=== PATIENT | male | born 1980 ===

== ENCOUNTER 2018-10-15 11:50 | Emergency (ER) | payer MEDICAID ==
[2018-10-15 11:54] VITALS: O2SAT 98
[2018-10-15 11:55] VITALS: BMI 24.5
[2018-10-15] MEDS ORDERED: Sodium Chloride 0.9% 1,000 ML IV STA (13:07)
--- NOTE | 2018-10-15 13:29 | ED PDOC ---
HPI: Abdomen Time Seen by Provider: 10/15/18 12:28 Chief Complaint (Nursing): Abdominal Pain History Per: Patient Additional Complaint(s): Pt. states on Sunday he developed diffuse bodyaches with tactile fever. States he was taking Theraflu throughout the day. On Sunday he woke up without fever and bodyaches but developed non-bloody, watery diarrhea which has been on going since. Reports he's been taking Pepto Bismol without any relief. Reports having diffuse upper abdominal pain which is intermittent and is only present after eating and when having a BM. Of note, pt. has not taken any antipyretics since Sunday. Denies N/V, cough, congestion, sore throat, rash, melena, hematochezia, BRBPR, sick contacts, recent travel. Past Medical History Reviewed: Historical Data, Nursing Documentation, Vital Signs Vital Signs: Last Vital Signs Temp 98.4 F 10/15/18 11:53 Pulse 72 10/15/18 11:53 Resp 16 10/15/18 11:53 BP 124/80 10/15/18 11:53 Pulse Ox 98 10/15/18 11:53 - Medical History PMH: No Chronic Diseases - Surgical History Surgical History: No Surg Hx - Family History Family History: States: No Known Family Hx - Home Medications Home Medications: Ambulatory Orders Medication Instructions Recorded Doxycycline Hyclate [Doxycycline] 100 mg PO BID #20 tab 01/19/15 Cyclobenzaprine HCl [Flexeril] 10 mg PO Q8 #15 tab 06/20/15 Ibuprofen [Motrin] 600 mg PO Q8 #20 tab 06/20/15 traMADol [Ultram] 25 mg PO BID #5 tab 06/04/16 Dicyclomine [Bentyl] 20 mg PO TID PRN #10 tab 10/15/18 - Allergies Allergies/Adverse Reactions: Allergies Allergy/AdvReac Type Severity Reaction Status Date / Time Penicillins Allergy RASH Verified 06/04/16 19:29 Review of Systems ROS Statement: Except As Marked, All Systems Reviewed And Found Negative Gastrointestinal: Positive for: Abdominal Pain, Diarrhea Physical Exam - Physical Exam Appears: Positive for: Well, Non-toxic, No Acute Distress Skin: Positive for: Normal Color, Warm. Negative for: Rash Eye Exam: Positive for: Normal appearance ENT: Positive for: Normal ENT Inspection Neck: Positive for: Normal, Painless ROM, Supple Cardiovascular/Chest: Positive for: Regular Rate, Rhythm Respiratory: Positive for: Normal Breath Sounds. Negative for: Respiratory Distress Gastrointestinal/Abdominal: Positive for: Normal Exam, Bowel Sounds, Soft. Negative for: Tenderness, Distended Back: Positive for: Normal Inspection. Negative for: L CVA Tenderness, R CVA Tenderness Neurological/Psych: Positive for: Awake, Alert, Oriented (x3) - Laboratory Results Result Diagrams: 10/15/18 13:38 10/15/18 13:38 - ECG O2 Sat by Pulse Oximetry: 98 - Progress ED Course And Treament: Labs, IV NS bolus x 1, pepcid 20mg IV, bentyl 20mg PO ordered. Re-evaluation Time: 15:16 Condition: Re-examined, Improved (Reports good relief of pain. No diarrhea while in ED. Abd remains soft and non-tender. Informed of US results. Advised on abstaining from alcohol and decrease fat intake. Advised to f/u with PMD for further evaluation but is to return to ED immediately if symptoms worsen. ) Disposition - Clinical Impression Clinical Impression: Diarrhea - Patient ED Disposition Is Patient to be Admitted: No - Disposition Referrals: [facility] [Outside] Disposition: Routine/Home Disposition Time: 15:20 Condition: IMPROVED Additional Instructions: FOLLOW UP WITH YOUR DOCTOR FOR FOR FURTHER EVALUATION RETURN TO ED IMMEDIATELY IF SYMPTOMS WORSEN [facility], thank you for letting us take care of you today. Your provider was Neal Izquierdo MD and you were treated for ABD PAIN. The emergency medical care you received today was directed at your acute symptoms. If you were prescribed any medication, please fill it and take as directed. It may take several days for your symptoms to resolve. Return to the Emergency Department if your symptoms worsen, do not improve, or if you have any other problems. Please contact your doctor or call one of the physicians/clinics you have been referred to that are listed on the Patient Visit Information form that is included in your discharge packet. Bring any paperwork you were given at discharge with you along with any medications you are taking to your follow up visit. Our treatment cannot replace ongoing medical care by a primary care provider outside of the emergency department. Thank you for allowing the [facility] team to be part of your care today. If you had an X-Ray or CT scan: A Radiologist will review the ED reading if any change in treatment is needed we will contact you. If you had a blood, urine, or wound culture: It will take several days for the results, if any change in treatment is needed we will contact you. If you had an STI test: It will take 48 hours for the results. Please call after 1 week if you have not heard back. Prescriptions: Dicyclomine [Bentyl] 20 mg PO TID PRN #10 tab PRN Reason: abdominal pain Instructions: Diarrhea and Traveler's Diarrhea, Adult (DC) Forms: [facility] ([place]), [facility] ED School/Work Excuse Print Language: SWEDISH
[2018-10-15 13:46] LABS: BASO % 0.5 % (0.0-2.0); EOS % 0.5 % (0.0-4.0); HEMOGLOBIN 16.5 g/dL (12.0-18.0); LYMPH # 1.3 K/uL (1.0-4.3); LYMPH % 29.6 % (20.0-40.0); MEAN CELL VOLUME 92.1 fl (80.0-94.0); MEAN CORPUSCULAR HEMOGLOBIN 32.1 pg (27.0-31.0); MEAN CORPUSCULAR HGB CONC 34.9 g/dL (33.0-37.0); MEAN PLATELET VOLUME 7.4 fl (7.2-11.7); MONO # 0.8 K/uL (0.0-0.8); MONO % 17.3 % (0.0-10.0); NEUT # 2.4 K/uL (1.8-7.0); NEUT % 52.1 % (50.0-75.0); NRBC % 0.1 % (0.0-0.0); RBC 5.13 Mil/uL (4.40-5.90); RED CELL DISTRIBUTION WIDTH 12.4 % (11.5-14.5); WHITE BLOOD COUNT 4.5 K/uL (4.8-10.8)
[2018-10-15 13:55] LABS: ALB/GLOB RATIO 1.4 (1.0-2.1); ALBUMIN 4.4 g/dL (3.5-5.0); ALT/SGPT 75 U/L (21-72); AST/SGOT 69 U/L (17-59); BLOOD UREA NITROGEN 11 mg/dl (9-20); CALCIUM 9.1 mg/dL (8.4-10.2); GFR NON-AFRICAN AMERICAN > 60; LIPASE 123 U/L (23-300)
--- NOTE | 2018-10-15 15:18 | US ---
Date of service: 10/15/2018 HISTORY: epigastric and RUQ pain COMPARISON: None. TECHNIQUE: Sonographic evaluation of the right upper quadrant of the abdomen. FINDINGS: LIVER: Measures 15.5 cm in length. Normal echogenicity of the liver parenchyma. No intrahepatic biliary ductal dilatation. There is a region of decreased echogenicity adjacent to the gallbladder fossa measuring 1.0 x 1.4 x 2.5 cm. This likely represents relative focal fatty sparing though within the liver that does not not demonstrate particularly significant fatty infiltration. Nevertheless, this is unlikely to represent a neoplastic process. This is in a characteristic location as well. GALLBLADDER: Unremarkable. No gallstones. COMMON BILE DUCT: Measures 5 mm. No stones. No dilatation. PANCREAS: Unremarkable as visualized. No mass. No ductal dilatation. RIGHT KIDNEY: Measures 11.6 cm in length. Normal echogenicity. No calculus, mass, or hydronephrosis. AORTA: No aneurysmal dilatation. IVC: Unremarkable. OTHER FINDINGS: None . IMPRESSION: Probable focal fatty sparing adjacent to the gallbladder fossa. Otherwise unremarkable examination.
[2018-10-15 16:44] VITALS: BP 129/81; PULSE 60; RESP 18; TEMP 98.1
== END 2018-10-15 16:42 | disposition home or self-care (01) ==
LOC: H.ER 11:50
DX: R19.7 Diarrhea, unspecified (principal); Z88.0 Allergy status to penicillin; Z79.899 Other long term (current) drug therapy
CPT/HCPCS: 76700; 76705; 80053; 83690; 85025; 87040; 96374; 99285; J7030

== ENCOUNTER 2018-10-28 19:46 | Emergency (ER) | payer MEDICAID ==
[2018-10-28 19:51] VITALS: BMI 25.0
[2018-10-28 21:26] LABS: BASO % 0.5 % (0.0-2.0); EOS % 0.2 % (0.0-4.0); HEMOGLOBIN 15.4 g/dL (12.0-18.0); LYMPH # 1.3 K/uL (1.0-4.3); LYMPH % 29.1 % (20.0-40.0); MEAN CELL VOLUME 93.6 fl (80.0-94.0); MEAN CORPUSCULAR HEMOGLOBIN 32.2 pg (27.0-31.0); MEAN CORPUSCULAR HGB CONC 34.4 g/dL (33.0-37.0); MEAN PLATELET VOLUME 7.6 fl (7.2-11.7); MONO # 0.3 K/uL (0.0-0.8); MONO % 7.8 % (0.0-10.0); NEUT # 2.7 K/uL (1.8-7.0); NEUT % 62.4 % (50.0-75.0); NRBC % 0.2 % (0.0-0.0); RBC 4.78 Mil/uL (4.40-5.90); RED CELL DISTRIBUTION WIDTH 12.3 % (11.5-14.5); WHITE BLOOD COUNT 4.3 K/uL (4.8-10.8)
[2018-10-28 21:42] LABS: ALB/GLOB RATIO 1.7 (1.0-2.1); ALBUMIN 4.6 g/dL (3.5-5.0); BLOOD UREA NITROGEN 7 mg/dl (9-20)
[2018-10-28 21:43] LABS: ALT/SGPT 44 U/L (21-72); AST/SGOT 32 U/L (17-59); CALCIUM 8.9 mg/dL (8.4-10.2); GFR NON-AFRICAN AMERICAN > 60
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
[2018-10-28 23:45] VITALS: RESP 16
[2018-10-29 06:08] VITALS: BP 122/61; PULSE 67; TEMP 98.3; O2SAT 99
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
== END 2018-10-29 05:50 | disposition home or self-care (01) ==
LOC: H.ER 19:46
DX: F10.129 Alcohol abuse with intoxication, unspecified (principal); S09.93XA Unspecified injury of face, initial encounter; Z88.0 Allergy status to penicillin; Y90.8 Blood alcohol level of 240 mg/100 ml or more
CPT/HCPCS: 70450; 70486; 80053; 80320; 82948; 85025; 96372; J1630; J2060